=== PATIENT | male | born 1960 | race Caucasian/White ===

== ENCOUNTER 2025-06-01 16:12 | Inpatient (IN) | payer MEDICARE, SELFPAY ==
[2025-05-30 19:09] VITALS: BP 125/78
[2025-05-30 19:40] VITALS: BMI 27.3
--- NOTE | 2025-05-30 19:42 | EDRN ---
Pt's significant other brought pt to ED because she says she saw him vomit approximately 20 times. Pt says he thinks he vomited at least 50 times since 0230 this morning. Pt adds he cannot get out of bed because he has bad vertigo. Pt has not
vomited since he started drinking water here around 1908 and says he feels a lot better now. No nausea currently. No blood in vomit, described as 'yellowy then poop color.' Pt has not had a good BM in 1 week, reports small volume 'like a house
cat'. No medication for constipation. Intermittent L side abd pain. Pt says this has been a recurring problem over past 7 years. Pt with hot/cold sensation - no fever/cough. No urinary symptoms or abd surgeries.
--- NOTE | 2025-05-30 19:43 | ED.GENMED ---
History of Present Illness
<Trell Lim MD - Last Filed: 05/30/25 23:24>
General
Chief Complaint: Abdominal Symptoms
Time Seen by Provider: 05/30/25 19:12
<Greg Colvin MD, Resident - Last Filed: 05/30/25 23:35>
General
Source: patient and significant other
History of Present Illness
History of Present Illness:
Patient is a 65-year-old male with PMH of HLD, diverticulitis, PUD, and hyperparathyroidism s/p parathyroidectomy who presents to the [facility] ED with nausea and frequent nonbloody vomiting since approximately 2:30 AM this morning. Patient has
vomited approximately 2�3 times per hour since onset. Associated symptoms include 1/10 intensity, left-sided, nonradiating abdominal pain, chills, and dizziness. Patient has been mostly bedbound due to the vomiting and dizziness since this
morning. Denies chest pain, shortness of breath, weakness, numbness, or diarrhea. Patient last had a bowel movement approximately 1 week ago, though he normally fluctuates between similar periods of constipation periods of frequent (5�6 times per
day) bowel movements. Patient has had sinus congestion and rhinorrhea for the last 1-2 weeks.
Past History
<Greg Colvin MD, Resident - Last Filed: 05/30/25 23:35>
Past History
ED Past Medical History: Hypercholesterolemia and Other (PUD, diverticulitis, hyperparathyroidism)
ED Past Surgical History: Orthopedic (Disc surgeries) and Other (Parathyroidectomy)
Review of Systems
<Greg Colvin MD, Resident - Last Filed: 05/30/25 23:35>
Review of Systems
Constitutional: Reports chills; Denies fever or fatigue
Respiratory: Denies trouble breathing
Cardiac: Denies chest pain
ABD/GI: Reports abdominal pain, nausea and vomiting; Denies diarrhea
: Reports no symptoms
Neurological: Reports dizzy
Phy Exam
<Greg Colvin MD, Resident - Last Filed: 05/30/25 23:35>
Physical Exam
Physical Exam:
General: NAD. Easily communicative.
GI: Soft, nondistended. Mildly TTP left side.
CV: RRR. S1, S2 noted. No M/R/G.
Pulm: CTAB. No wheezes or crackles.
Neuro: A&O x 3 NFD. CN II through XII grossly intact
Course
<Trell Lim MD - Last Filed: 05/30/25 23:24>
Orders/Labs/Results
Orders:
Orders
05/30/25 19:14
EKG [Electrocardiogram (*1)] Urgent
Reason for Study: Tachycardia
05/30/25 19:48
CT Abd/pelvis W Iv Cont Urgent
Comment:
Reason For Exam: N/V, abd pain, constipation
Urinalysis Reflex To Culture Urgent
0.9% Sodium Chloride 1000 ml [Nss] 1,000 ml IV BOLUS
Ondansetron Injectable [Zofran] 4 mg IV NOW STA
05/30/25 19:52
COVID-19 Antigen Urgent
Source: Nasal Swab
Influenza A+B Rapid Molecular Urgent
EVAN Source: Nasal Swab
Specimen Description:
05/30/25 19:57
Complete Blood Count/With Diff Urgent
Comprehensive Metabolic Panel Urgent
Lipase Urgent
05/30/25 21:38
Electrocardiogram (*1) Urgent
Reason for Study: QTc Monitoring
05/30/25 22:03
Ondansetron Injectable [Zofran] 4 mg IV NOW STA
Pantoprazole [Protonix IV] 40 mg IV NOW STA
05/30/25 23:23
Mag Hydrox/Al Hydrox/Simeth [Maalox] 30 ml Phenobarb/Hyoscy/Atropine/Scop [] 10 ml Viscous Lidocaine 2% [Xylocaine Viscous Cup] 10 ml PO NOW
Abnormal Lab Results
05/30/25
19:57
WBC 13.3 H 10^3/uL
(4.8-10.8)
Abs Immat Gran (auto) 0.1 H 10^3/uL
(0-0.05)
Absolute Neuts (auto) 12.0 H 10^3/uL
(1.4-6.5)
Absolute Lymphs (auto) 0.7 L 10^3/uL
(1.2-3.4)
Neutrophils % 90.5 H %
(42.2-75.2)
Lymphocytes % 5.0 L %
(20.5-51.1)
Glucose 125 H mg/dl
(70-99)
Total Bilirubin 3.7 H mg/dl
(0.2-1.3)
05/30/25 19:57
05/30/25 19:57
Vital Signs
Initial and Last Documented VS:
Initial Vital Signs
Temp Pulse Resp BP Pulse Ox
98.3 F 87 16 125/78 94
05/30/25 19:09 05/30/25 19:09 05/30/25 19:09 05/30/25 19:09 05/30/25 19:09
Last Documented Vital Signs
Temp Pulse Resp BP Pulse Ox
98.3 F 79 14 138/84 97
05/30/25 19:09 05/30/25 21:21 05/30/25 21:21 05/30/25 21:21 05/30/25 21:21
<Greg Colvin MD, Resident - Last Filed: 05/30/25 23:35>
Orders/Labs/Results
Orders:
Orders
05/30/25 19:14
EKG [Electrocardiogram (*1)] Urgent
Reason for Study: Tachycardia
05/30/25 19:48
CT Abd/pelvis W Iv Cont Urgent
Comment:
Reason For Exam: N/V, abd pain, constipation
Urinalysis Reflex To Culture Urgent
0.9% Sodium Chloride 1000 ml [Nss] 1,000 ml IV BOLUS
Ondansetron Injectable [Zofran] 4 mg IV NOW STA
05/30/25 19:52
COVID-19 Antigen Urgent
Source: Nasal Swab
Influenza A+B Rapid Molecular Urgent
EVAN Source: Nasal Swab
Specimen Description:
05/30/25 19:57
Complete Blood Count/With Diff Urgent
Comprehensive Metabolic Panel Urgent
Lipase Urgent
05/30/25 21:38
Electrocardiogram (*1) Urgent
Reason for Study: QTc Monitoring
05/30/25 22:03
Ondansetron Injectable [Zofran] 4 mg IV NOW STA
Pantoprazole [Protonix IV] 40 mg IV NOW STA
05/30/25 23:23
Mag Hydrox/Al Hydrox/Simeth [Maalox] 30 ml Phenobarb/Hyoscy/Atropine/Scop [] 10 ml Viscous Lidocaine 2% [Xylocaine Viscous Cup] 10 ml PO NOW
Abnormal Lab Results
05/30/25
19:57
WBC 13.3 H 10^3/uL
(4.8-10.8)
Abs Immat Gran (auto) 0.1 H 10^3/uL
(0-0.05)
Absolute Neuts (auto) 12.0 H 10^3/uL
(1.4-6.5)
Absolute Lymphs (auto) 0.7 L 10^3/uL
(1.2-3.4)
Neutrophils % 90.5 H %
(42.2-75.2)
Lymphocytes % 5.0 L %
(20.5-51.1)
Glucose 125 H mg/dl
(70-99)
Total Bilirubin 3.7 H mg/dl
(0.2-1.3)
05/30/25 19:57
05/30/25 19:57
Vital Signs
Initial and Last Documented VS:
Initial Vital Signs
Temp Pulse Resp BP Pulse Ox
98.3 F 87 16 125/78 94
05/30/25 19:09 05/30/25 19:09 05/30/25 19:09 05/30/25 19:09 05/30/25 19:09
Last Documented Vital Signs
Temp Pulse Resp BP Pulse Ox
98.3 F 79 14 138/84 97
05/30/25 19:09 05/30/25 21:21 05/30/25 21:21 05/30/25 21:21 05/30/25 21:21
<Greg Colvin MD, Resident - Last Filed: 05/30/25 23:35>
MDM/Problems Addressed
Differential Diagnosis Includes:
Gastroenteritis
Diverticulitis
MDM/Problems Addressed:
Assessment: Patient is a 65-year-old male with PMH of HLD, diverticulitis, and PUD who presents to the [facility] ED with nausea, chills, dizziness, and frequent episodes (2�3 times per hour) of nonbloody emesis since approximately 2:30 AM this
morning. Last BM approximately 1 week ago. AFVSS. Abdominal exam shows mild TTP left side, without peritoneal signs. CTAP unremarkable. Suspect gastroenteritis. Patient continues to have intractable nausea and vomiting. Unable to tolerate
p.o. intake.
Plan:
#Vomiting
Labs: CBC, CMP, lipase, UA, flu, COVID
Imaging: CTAP w/ IV contrast
IVF's, antiemetics, PPI
Plan for admission
<Greg Colvin MD, Resident - Last Filed: 05/30/25 23:35>
*Pulse Oximetry
SaO2: 94
Oxygen Mode of Delivery: Room air
Patient hypoxic: no
*Critical Care Note
Total Time (30-74mins, 75-104mins- exclusive of procedures): Not Applicable
ED Attending Note
<Trell Lim MD - Last Filed: 05/30/25 23:24>
ED Attending Note
Patient seen and examined by attending physician: Yes
I performed a history and physical exam of patient and discussed management with resident, I reviewed resident's note and agree with documented findings and plan of care.: Yes
ED Attending Note:
I have seen and evaluated the patient with a [id number] encounter. I have spoken to the resident and involved in the medical history, the physical exam, medical decision making.
Evaluation and management service: agree unless noted differently below.
Results interpretation: agree unless noted differently below.
Focused HPI: 65-year-old male with history as noted presents to the ER for evaluation of nausea and vomiting. Patient reports onset of symptoms a few days ago and have been constant since that time�he reports essentially nonstop nausea and
nonbloody emesis all day today. He says he has not been able to take anything by mouth for about 2 days. He does have some very mild abdominal discomfort. He says he has been constipated and has not had a bowel movement in about a week. Denies
any urinary symptoms. He did have some mild dizziness today but no other acute complaints. He does have a long history he says of episodes similar to this in the past and has had prior endoscopies without a clear diagnosis.
Physical exam: Awake and alert not in distress. Vital signs are normal. Abdomen soft, mildly tender left lower quadrant. Dry mucous membranes.
Medical Decision Makin-year-old male presents for nausea/vomiting associated with mild abdominal pain and constipation. Vitals and exam as above. Check labs including a CBC and a CMP, lipase. Will check urinalysis. Send viral swabs. Check
CT to rule out obstruction. Will provide fluids and antiemetic. Reassess after the above.
Labs reviewed CBC shows leukocytosis unclear acute clinical significance, CMP shows isolated elevated T. bili with normal LFTs otherwise. CT negative for any acute abnormalities. Overall I suspect her symptoms are likely from gastritis or PUD. He
has had continued vomiting here including episode of scant hematemesis. Plan to admit for continued treatment, IV PPI, IV fluids.
<Greg Colvin MD, Resident - Last Filed: 05/30/25 23:35>
-
Portions of this chart may have been created with voice recognition software.� Occasional wrong word or��sound alike� substitutions may have occurred due to the inherent limitations of voice recognition software.
Discharge Plan
Departure
Patient Disposition: Admit
Date of Disposition: 05/30/25
Time of Disposition: 23:26
Admit to: Med/Surg
Presentation/result/management discussed w/ accepting MD/DO: Hospitalist
Condition: Fair
Covid-19: Not Applicable
Discharge Problem:
Abdominal pain, Nausea & vomiting
Prescriptions:
No Action
rosuvastatin
1 tab PO DAILY
Patient Comments:
pt does not know mg
Referrals:
Bertram Pedroza DO [Family Provider, Family Practice]
Interventions
Interventions:
*Risk Screen - Suicide Last Done: 05/30/25 19:09
*General Assessment Last Done: 05/30/25 19:09
*Neglect/Abuse Screening Last Done: 05/30/25 19:09
*ED- Fall Risk Assessment Last Done: 05/30/25 19:09
*ED COVID-19 Vaccine History Last Done: 05/30/25 19:09
*ED Influenza Vaccine History Last Done: 05/30/25 19:09
JB-Xgqegq-Frfsxlczly Assessment Last Done: 05/30/25 19:47
Discharge Date and Time
Print Language: LAO
[2025-05-30] MEDS: NSS 1000 IV (19:59)
[2025-05-30] MEDS: ZOFRAN 4 MG IV ×2 (19:59→22:09)
[2025-05-30 20:05] LABS: Hematocrit 44.1 % (39.0-52.0); Hemoglobin 15.8 g/dL (13.0-18.0); Mean Corp Hgb Conc. 35.8 g/dL (33.0-37.0); Mean Corpuscular Volume 83.2 fL (80.0-94.0); Nucleated Red Blood Cells % 0 % (-); Platelet Count 217 10^3/uL (130-400); Red Cell Dist. Width 12.4 % (11.5-14.5)
[2025-05-30 20:24] LABS: COVID-19 Antigen Negative (Negative)
[2025-05-30 20:37] LABS: ALT (SGPT) 21 U/L (0-50); AST (SGOT) 24 U/L (17-59); Albumin 4.8 g/dl (3.5-5.0); Alkaline Phosphatase 61 U/L (38-126); Blood Urea Nitrogen 19 mg/dl (9-20); Calcium 10.0 mg/dl (8.4-10.2); Carbon Dioxide 24 mmol/L (22-30); Chloride 104 mmol/L (98-107); Estimated Creatinine Clearance 91 ml/min; Glucose 125 mg/dl (70-99); Lipase 68 U/L (23-300); Potassium 3.8 mmol/L (3.5-5.1); Sodium 140 mmol/L (135-145); Total Protein 7.7 g/dl (6.3-8.2); eGFR > 60.00
[2025-05-30 21:21] VITALS: BP 138/84
[2025-05-30] MEDS: PROTONIX IV 40 MG IV (22:10)
[2025-05-30] MEDS: MAALOX 50 PO (23:37)
--- NOTE | 2025-05-31 00:45 | HPS.HSE ---
Family Physician
-
Family Physician: Bertram Pedroza
Chief Complaint
-
Abdominal pain
History of Present Illness
Patient is a 65-year-old with past medical history of hyperlipidemia, peptic ulcer disease, diverticulitis presenting to the emergency department with nausea vomiting.
Patient reports history of peptic ulcer disease, irregular bowel movement and intermittent abdominal pain that he attributes to THANH but has not been diagnosed specifically with that. He states that he was in usual state of health with ongoing
abdominal symptoms up until about a week ago when he started having constipation and his last bowel movement was last week Sunday. He said he woke up at around 2:30 AM last night with vomiting. He reported nausea mild abdominal pain. Still has
not had a bowel movement. He said he vomited all all day and was unable to tolerate p.o. Initially vomitus was clear but now he says it is bilious and eats. He reports chills but no fevers. Patient denies any blood thinners. He denies NSAID use
with his last use of NSAIDs several days ago. He denies any significant alcohol use. He denies any history of gallstones. He denies chest pain.
He reports that he previously had EGD before 2018 where he was diagnosed with peptic ulcer disease. He also had screening colonoscopies in the past and is due for 1 5 years after his last 1 which is now.
In the emergency department was afebrile, blood pressure was 137/84 with a pulse of 79 and he was satting 97% on room air.
CBC shows a white count 13.3 hemoglobin 15.8 and a platelet of 217. Electrolytes BUN/creatinine were normal. Lipase was normal. LFTs with only notable for isolated total hyperbilirubinemia. COVID test was negative.
CT of the abdomen pelvis shows bilateral hypoattenuating renal lesions compatible with simple cysts and no other abnormal findings.
Medical History
Past Medical History
Past Medical History: Reports Hypercholesterolemia
Past Surgical History: Reports Orthopedic (Back surgeries) and Other (Parathyroidectomy)
Social History
Tobacco: Non-smoker
Alcohol: None
Drug: None
Family History
Family History: Not pertinent
Allergies / Home Medications
Allergies reflects when Allergies were last updated in [facility].
Home Medications with original date entered in [facility]
Allergy/Medication List:
Allergies
Allergy/AdvReac Type Severity Reaction Status Date / Time
levofloxacin (From Levaquin) Allergy Unknown Verified 05/30/25 19:14
Home Medications
rosuvastatin 1 tab PO DAILY 05/30/25
Review of Systems
-
Constitutional: Reports No Symptoms
EENT: Reports No Symptoms
Respiratory: Reports No Symptoms
Cardiac: Reports No Symptoms
Abdomen/GI: Reports Abdominal Pain, Nausea, Vomiting and Constipated
: Reports No Symptoms
Musculoskeletal: Reports No Symptoms
Skin: Reports No Symptoms
Neurological: Reports No Symptoms
Endocrine: Reports No Symptoms
Hematologic/Lymphatic: Reports No Symptoms
Psych: Reports No Symptoms
Physical Exam
Vital Signs
Vital Signs
Temp Pulse Resp BP Pulse Ox
98.3 F 79 14 138/84 97
05/30/25 19:09 05/30/25 21:21 05/30/25 21:21 05/30/25 21:21 05/30/25 21:21
Physical Exam
General: Well Developed, Well Nourished and No Apparent Distress
HEENT: NormoCephalic, Moist mucous membranes and Atraumatic
Respiratory: Clear
Cardiac: S1/S2 and Regular Rhythm; No Murmur or Rub
GI: Soft, Non Tender, Non Distended and Normal Bowel Sounds; No Organomegaly
Rectal: Hem Negative (Empty vault)
Genito-urinary: Deferred by me
Musculoskeletal: No Clubbing, No Cyanosis and No Edema
Skin: No Rash
Neuro: AO x 3 and Nonfocal/grossly intact
Hematologic/Lymphatic: No Lymphadenopathy
Psych: Calm
Laboratory Results
-
05/30/25 19:57
05/30/25 19:57
Laboratory Results
Total Bilirubin 3.7 mg/dl (0.2-1.3) H 05/30/25 19:57
AST 24 U/L (17-59) 05/30/25 19:57
ALT 21 U/L (0-50) 05/30/25 19:57
Alkaline Phosphatase 61 U/L (38-126) 05/30/25 19:57
Lipase 68 U/L (23-300) 05/30/25 19:57
Data Reviewed
-
CT Scan: Report Reviewed by me
Lab Data: Labs Reviewed by me
Impression/Plan
-
IMPRESSION:
65-year-old with past medical history of peptic ulcer disease here with intractable nausea vomiting, hemodynamically stable, labs unremarkable except for isolated total bilirubin of 3.7. CT of the abdomen pelvis shows no acute findings. Heme
negative empty vault.
PLAN:
Intractable nausea vomiting -suspect gastritis, unable to tolerate p.o.
-Admit to MedSurg observation
-PPI IV daily
-Famotidine IV at bedtime
-Pain control and antiemetics
-IV fluids
- ADAT, start laxatives
- Continue rosuvastatin
Isolated hyperbilirubinemia - CTa/p unremarkable. No evidence of hemolysis
- trend lft and check direct bili and GGT
- monitor H/H
DVT prophylaxis�SCDs
CODE STATUS�full code
[2025-05-31 02:46] VITALS: BMI 27.0
[2025-05-31 02:48] VITALS: BP 139/87
[2025-05-31] MEDS: NSS 1000 IV ×3 (03:11→21:35)
[2025-05-31] MEDS: ZOFRAN 4 MG IV (03:18)
[2025-05-31 07:47] VITALS: BP 132/74
[2025-05-31 09:18] LABS: Hematocrit 39.3 % (39.0-52.0); Hemoglobin 13.9 g/dL (13.0-18.0); Mean Corp Hgb Conc. 35.4 g/dL (33.0-37.0); Mean Corpuscular Volume 86.2 fL (80.0-94.0); Platelet Count 185 10^3/uL (130-400); Red Cell Dist. Width 12.5 % (11.5-14.5)
[2025-05-31] MEDS: NSS (PRESERVATIVE FREE) 10 ML IV (09:42)
[2025-05-31] MEDS: PROTONIX IV 40 MG IV (09:42)
[2025-05-31 09:45] LABS: ALT (SGPT) 17 U/L (0-50); AST (SGOT) 27 U/L (17-59); Albumin 4.0 g/dl (3.5-5.0); Alkaline Phosphatase 47 U/L (38-126); Blood Urea Nitrogen 18 mg/dl (9-20); Calcium 8.8 mg/dl (8.4-10.2); Carbon Dioxide 28 mmol/L (22-30); Chloride 105 mmol/L (98-107); Estimated Creatinine Clearance 75 ml/min; GGTP < 10 U/L (15-73); Glucose 101 mg/dl (70-99); Magnesium 2.0 mg/dl (1.6-2.3); Potassium 3.9 mmol/L (3.5-5.1); Sodium 139 mmol/L (135-145); Total Protein 6.6 g/dl (6.3-8.2); eGFR > 60.00
[2025-05-31 10:36] LABS: Urine Character Clear (Clear)
[2025-05-31 10:42] LABS: Urine Red Blood Cell 0-2 /HPF (0-2); Urine White Cell None Seen /HPF (0-5)
--- NOTE | 2025-05-31 12:03 | W.PN.HOSP.TC ---
Today's Communication/Plan
-
Meclizine
Try 1 dose of Valium
Check MRI of the brain
N.p.o. with IV fluids
Antiemetics
Assessment / Plan
Assessment / Plan
65 y/o with sudden onset vomiting and nausea with headache and vertigo which started 2:30 AM on Sunday. Patient states that he still has headache in the back of the head and also feels dizzy when he gets up. Patient also feels like he has nausea.
On examination patient is awake and alert
No nystagmus noted
Cardiovascular system stenosed appreciated
Chest clear to auscultation
Abdomen soft and nontender
Neuroexam-no nystagmus, no cerebellar signs, good strength upper extremity and lower extremity
CT abdomen and pelvis with IV contrast-no significant acute abnormality
EKG-normal sinus rhythm nonspecific ST-T changes. QTc 510
# Intractable nausea and vomiting
With sudden onset of vertigo and headache 2
Denies THC use,.
Continue symptomatic treatment with PPI, Pepcid. Add meclizine. Will give a dose of Valium now to see if it is peripheral vertigo
Also proceed with MRI of the brain-with sudden onset and also headache and vertigo to rule out CVA
Keep n.p.o. until nausea subsides
Continue IV fluids
# Prolonged QTC-resolved
# Mild hyperbilirubinemia-follow
# Hyperlipidemia will continue statin
# DVT prophylaxis-add Lovenox
# Full code
D/W RN
Discussed with significant other at bedside
Part of this note was created using voice recognition system. Occasional wrong word or��sound alike� substitutions may have inadvertently occurred due to the inherent limitations of voice recognition software. If noted kindly bring it to my
attention for correction.
Anticipated Discharge: Within 24 hours
Subjective/Interval History
-
Date of Service: May 31, 2025
Objective Data
-
Labs:
Laboratory Results
05/31/25
08:40
WBC 14.9 H
Hgb 13.9
Hct 39.3
Plt Count 185
Sodium 139
Potassium 3.9
Chloride 105
Carbon Dioxide 28
BUN 18
Creatinine 1.1
Glucose 101 H
Calcium 8.8
Total Bilirubin 3.7 H
AST 27
ALT 17
Alkaline Phosphatase 47
Vital Signs:
Vital Signs
Temp Pulse Resp BP Pulse Ox
99.1 F 60 18 132/74 98
05/31/25 07:47 05/31/25 07:47 05/31/25 07:47 05/31/25 07:47 05/31/25 07:47
[2025-05-31] MEDS: VALIUM INJECTION 2 MG IV (12:56)
[2025-05-31 15:29] VITALS: BP 122/69
[2025-05-31] MEDS: ANTIVERT 12.5 MG PO ×2 (17:25→21:38)
[2025-05-31] MEDS: TYLENOL 650 MG PO ×2 (17:26→21:54)
[2025-05-31] MEDS: NSS (PRESERVATIVE FREE) 8 ML IV (21:35)
[2025-05-31] MEDS: PEPCID 20 MG IV (21:37)
[2025-05-31 23:00] VITALS: BP 113/72
[2025-06-01] MEDS: NSS 1000 IV (05:12)
[2025-06-01] MEDS: TYLENOL 650 MG PO (05:17)
[2025-06-01 07:50] VITALS: BP 104/75
[2025-06-01 08:47] LABS: Hematocrit 37.5 % (39.0-52.0); Hemoglobin 12.7 g/dL (13.0-18.0); Mean Corp Hgb Conc. 33.9 g/dL (33.0-37.0); Mean Corpuscular Volume 90.6 fL (80.0-94.0); Platelet Count 143 10^3/uL (130-400); Red Cell Dist. Width 12.7 % (11.5-14.5)
[2025-06-01 09:04] LABS: Blood Urea Nitrogen 21 mg/dl (9-20); Calcium 8.0 mg/dl (8.4-10.2); Carbon Dioxide 27 mmol/L (22-30); Chloride 106 mmol/L (98-107); Estimated Creatinine Clearance 91 ml/min; Glucose 73 mg/dl (70-99); Potassium 3.6 mmol/L (3.5-5.1); Sodium 136 mmol/L (135-145); eGFR > 60.00
[2025-06-01] MEDS: ANTIVERT 12.5 MG PO (09:39)
[2025-06-01] MEDS: PROTONIX IV 40 MG IV (09:40)
[2025-06-01] MEDS: NSS (PRESERVATIVE FREE) 10 ML IV (09:40)
[2025-06-01] MEDS: SENOKOT-S 1 TABLET PO (09:50)
--- NOTE | 2025-06-01 10:41 | CM ---
Addendum entered by Nain Mendez 06/01/25 15:20:
Pt is OBS status now. [facility]OWER letter provided, declined to sign, pt has a copy.
Original Note:
CM following re: discharge planning.
Reviewed pt's chart, met with pt.
Pt is a 65 year old male, admitted with primary dx of Abdominal pain.
Pt reports he lives with SH in a 2SH, 2 steps to enter. Pt described himself as independent in all areas [employer]. No DME, VN or SNF history.
PCP: Bertram Pedroza
pharmacy: [facility]
D/C plan: home with no needs anticipated.
CM will follow with discharge plan updates as hospitalization progresses
--- NOTE | 2025-06-01 11:26 | W.PN.HOSP.TC ---
Addendum entered and electronically signed by Shad Collado DO 06/01/25 16:14:
Patient admitted for intractable vomiting related to vertigo.
Has required 5 L of IV fluids due to poor oral intake and persistent nausea.
Seen by PT, continue vestibular rehab.
If no improvement, will consult ENT.
Original Note:
Today's Communication/Plan
-
PT consult
Assessment / Plan
Assessment / Plan
Gen-AAOx3, NAD
HEENT-NC, AT, anicteric, clear oral mm
Neck-supple
CV-reg, no M, +S1/S2
Lungs-clear B/L
Abd-soft, NT, ND
Ext-no edema
Musculoskeletal-no cyanosis, clubbing
Skin-warm and dry
Neuro-grossly non-focal
Psych-calm, cooperative
Vertigo -suspect benign paroxysmal positional vertigo. Recommend PT consult for vestibular therapy.
Suspect vertigo induced intractable vomiting.
Brain MRI negative.
Abdominal/pelvic CT negative.
Advance diet as tolerated.
Outpatient ENT follow-up given frequent sinusitis, seasonal allergies.
Prolonged QTC-resolved
Mild hyperbilirubinemia-follow
Hyperlipidemia -will continue statin
DVT prophylaxis-add Lovenox
Full code
Dispo -likely discharge later today if remains stable. Outpatient follow-up.
Anticipated Discharge: Today
Subjective/Interval History
-
Date of Service: June 01, 2025
Patient seen and examined. Overall feeling better. No complaints.
Objective Data
-
Labs:
Laboratory Results
06/01/25
07:58
WBC 6.6
Hgb 12.7 L
Hct 37.5 L
Plt Count 143 D
Sodium 136
Potassium 3.6
Chloride 106
Carbon Dioxide 27
BUN 21 H
Creatinine 0.9
Glucose 73
Calcium 8.0 L
Vital Signs:
Vital Signs
Temp Pulse Resp BP Pulse Ox
98.4 F 56 16 104/75 96
06/01/25 07:50 06/01/25 07:50 06/01/25 07:50 06/01/25 07:50 06/01/25 07:50
I&O
05/31/25 06/01/25 06/02/25
06:59 06:59 06:59
Intake Total 480 / 480
Balance 480 / 480
Review of Systems
-
History Source: Patient
All other systems: Reviewed and negative
[2025-06-01 15:23] VITALS: BP 135/86
[2025-06-01 15:53] VITALS: BP 123/87; BP 137/89; BP 148/89
[2025-06-01] MEDS: PEPCID 20 MG IV (22:53)
[2025-06-01] MEDS: NSS (PRESERVATIVE FREE) 8 ML IV (22:53)
[2025-06-01 23:20] VITALS: BP 130/80
[2025-06-02 07:20] VITALS: BP 146/91
[2025-06-02] MEDS: PROTONIX IV 40 MG IV (08:52)
[2025-06-02] MEDS: NSS (PRESERVATIVE FREE) 10 ML IV (08:52)
--- NOTE | 2025-06-02 08:54 | W.PN.HOSP.TC ---
Today's Communication/Plan
-
ENT consult
Discharge
Assessment / Plan
Assessment / Plan
Gen-AAOx3, NAD
HEENT-NC, AT, anicteric, clear oral mm
Neck-supple
CV-reg, no M, +S1/S2
Lungs-clear B/L
Abd-soft, NT, ND
Ext-no edema
Musculoskeletal-no cyanosis, clubbing
Skin-warm and dry
Neuro-grossly non-focal
Psych-calm, cooperative
Vertigo -overall improving. Seen by physical therapy yesterday, negative [place]-Hallpike, negative nystagmus with goggles on. BPPV seems less likely.
Rule out vestibular neuronitis. ENT consulted.
Suspect vertigo induced intractable vomiting.
Brain MRI negative.
Abdominal/pelvic CT negative.
Tolerating solid food.
Allergic rhinitis -will prescribe Flonase on discharge.
GERD -will prescribe Protonix on discharge.
Prolonged QTC-resolved
Mild hyperbilirubinemia -likely Gilbert's syndrome.
Hyperlipidemia -will continue statin
DVT prophylaxis-add Lovenox
Full code
Dispo -anticipate discharge today after ENT consult. Outpatient follow-up.
Anticipated Discharge: Today
Subjective/Interval History
-
Date of Service: June 02, 2025
Patient seen and examined. Overall feeling better. No new complaints.
Objective Data
-
Vital Signs:
Vital Signs
Temp Pulse Resp BP Pulse Ox
98.4 F 53 16 146/91 100
06/02/25 07:20 06/02/25 07:20 06/02/25 07:20 06/02/25 07:20 06/02/25 07:20
I&O
06/01/25 06/02/25 06/03/25
06:59 06:59 06:59
Intake Total 480 / 480 240 / 240
Output Total 200 / 200
Balance 480 / 480 40 / 40
Review of Systems
-
History Source: Patient
All other systems: Reviewed and negative
[2025-06-02] MEDS: TYLENOL 650 MG PO (09:06)
[2025-06-02 11:36] VITALS: BP 163/98
--- NOTE | 2025-06-02 12:50 | W.DS.TRANS ---
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
-
Discharge Instructions:
Discharge Diagnosis/Procedures Vertigo
Diet Regular
Activity As tolerated
Driving Restrictions As prior to admission
Bathing Restrictions None
Instructions:
Stand-Alone Forms:
Changes to Home Medications: No
Discharge Medications:
DC Medications w/original date entered in [facility]
rosuvastatin 1 tab PO DAILY cholesterol 05/30/25
fluticasone propionate 50 mcg/actuation nasal spray,suspension (Aller-Reynaldo) 2 spray intranasal DAILY #16 grams 06/02/25
pantoprazole 40 mg tablet,delayed release (Protonix) 40 mg PO DAILY #30 tabs 06/02/25
prednisone 10 mg tablet 10 mg PO DAILY #18 tabs 06/02/25
Home Medication Changes
Pending Results: No
--- NOTE | 2025-06-02 13:09 | CM ---
CM following re: discharge planning.
Reviewed pt's chart, met with pt.
Discharge order noted. Pt is aware, expressed his agreement with discharge. Pt now inpatient level.
IMM reviewed, placed on chart, pt has a copy.
No after care VN needs identified.
D/C plan: home no needs. daughter or friend to transport.
[2025-06-02] MEDS: FLUZONE HIGH-DOSE 2025-26 0.5 ML IM (13:32)
[2025-06-02 14:09] VITALS: BP 145/92
--- NOTE | 2025-06-02 15:28 | PTCARENOTE ---
Addendum entered by Krystyna Rebolledo RN 06/02/25 15:52:
Patient refusing wheelchair escort despite encouragement by this RN, ambulated down to daughter's car with assistance of this RN.
Original Note:
Patient discharged home, transported by daughter. IV removed by this RN, discharge instructions reviewed by this RN with patient at bedside who verbalized understanding. Patient dressed and gathered belongings in room independently. Patient taken
down to daughter's car at [facility] via staff escort and wheelchair.
--- NOTE | 2025-06-02 16:16 | W.CON.OTO ---
Otolaryngology Consult
Chief Complaint
Dizziness/vertigo
History of Present Illness
Bertram Calhoun is a 65-year-old male who was admitted to the hospital Sunday evening with vertigo and nausea and vomiting. He describes being home on Sunday and laying down in the afternoon. He experienced some sudden vertigo that was very intense
for several minutes. This caused him to have nausea and vomiting. His symptoms lasted for several hours and then he was brought to the emergency room. Bertram has a history of GI problems, including constipation, and thought maybe his nausea and
vomiting was due to that. For approximately 48 hours he experienced intermittent vertigo and dizziness. On Sunday it improved and today it has continued to improve. Currently he complains only of some mild imbalance and dizziness, mainly with
sudden head movements. He denies any hearing changes. He has chronic ringing that is unchanged. He does have some mild pressure in his ears. He was sick back in February and treated at urgent care. He denies any other illnesses since then. He
has some mild nasal congestion and allergic symptoms. He has a long history of allergies but is currently not treated.
Medical History
Past Medical History: Hypercholesterolemia
Past Surgical History: Orthopedic
Additional Past Surgical History:
Parathyroidectomy
Patient Allergies:
Allergies
Allergy/AdvReac Type Severity Reaction Status Date / Time
levofloxacin (From Levaquin) Allergy Unknown Verified 05/30/25 19:14
Home Medications / Current Medications:
�Medication �Instructions �Recorded
rosuvastatin 1 tab PO DAILY cholesterol 05/30/25
fluticasone propionate 50 2 spray intranasal DAILY #16 grams 06/02/25
mcg/actuation nasal
spray,suspension (Aller-Reynaldo)
pantoprazole 40 mg tablet,delayed 40 mg PO DAILY #30 tabs 06/02/25
release (Protonix)
prednisone 10 mg tablet 10 mg PO DAILY #18 tabs 06/02/25
Physical Exam
Vitals / Labs:
Vital Signs
Temp 98.8 F 06/02/25 14:09
Temp route: Oral 06/02/25 14:09
Pulse 67 06/02/25 14:09
Resp Rate 16 06/02/25 14:09
Blood pressure 145/92 06/02/25 14:09
Blood pressure extremity used: Left upper arm 06/02/25 14:09
Position: Lying 06/02/25 14:09
SaO2 97 06/02/25 14:09
Oxygen Mode of Delivery Room air 06/02/25 14:09
Can the patient verbally communicate their pain? Yes 06/02/25 10:06
Pain scale ratin 06/02/25 10:06
Actual Weight 92.731 kg 05/31/25 02:46
Body Mass Index (BMI) 27.0 05/31/25 02:46
Supine- Blood Pressure 123/87 06/01/25 15:53
Sitting- Blood Pressure 137/89 06/01/25 15:53
Standing- Blood Pressure 148/89 06/01/25 15:53
Blood pressure after activity 163/98 06/02/25 11:36
Lab Results
06/01/25 07:58
06/01/25 07:58
Exam:
Awake, alert, oriented, in no acute distress.
Head normocephalic and atraumatic.
Ears clear bilaterally.
Nasal cavity clear anteriorly.
Oral cavity oropharynx unremarkable.
Neck soft and supple, no masses noted.
Pupils equally round and reactive to light bilaterally.
Extraocular motions intact, no nystagmus at rest or with gaze.
Nonfocal neurologic examination.
Assessment / Plan
A/[age]-year-old male with dizziness and vertigo, possible vestibular neuronitis.
-Patient may have viral labyrinthitis/vestibular neuronitis.
- Has been improving.
- MRI within normal limits.
- Patient able to eat and ambulate without any difficulty, cleared for discharge.
- Would give patient mild course of prednisone: 30 mg for 3 days, 20 mg for 3 days, 10 mg for 3 days.
- Patient can follow-up in the office as an outpatient.
- Knows to call my office if problems worsen.
Data Reviewed
MRI: Image Personally Visualized and interpreted ( MRI reviewed. No intracranial masses noted. Paranasal sinuses clear. Mastoid cavities and middle ear cavities clear bilaterally. IACs clear bilaterally. Deviated nasal septum to the left side.)
== END 2025-06-02 15:58 | disposition home or self-care (01) | DRG 149 ==
LOC: 2 NORTH 16:12
PROVIDERS: Hospitalist; ADMITTING PHYSICIAN Internal Medicine; ATTENDING PHYSICIAN Hospitalist; CONSULT PHYSICIAN Otolaryngology; EMERGENCY PHYSICIAN Emergency Medicine; FAMILY PHYSICIAN Family Medicine
DX: H81.10 Benign paroxysmal vertigo, unspecified ear (principal); R17 Unspecified jaundice; E21.3 Hyperparathyroidism, unspecified; Z87.11 Personal history of peptic ulcer disease; E78.00 Pure hypercholesterolemia, unspecified
CPT/HCPCS: 70551; 74177; 80048; 80053; 80076; 81003; 81015; 82977; 83690; 83735; 85025; 85027; 87502; 87811; 90662; 93005; 96361; 96374; 96375; 96376; 97112; 97163; 97530; 99285; G0008; Q9967